=== PATIENT | female | born 1995 | race Caucasian/White ===

== ENCOUNTER 2016-09-02 18:43 | Emergency (ER) | payer OTHER | END 2016-09-02 20:39 | disposition home or self-care (01) | LOC: ER1 18:43 | DX: S91.311A Laceration without foreign body, right foot, initial encounter (principal); W26.8XXA Contact with other sharp object(s), not elsewhere classified, initial encounter; Y92.009 Unspecified place in unspecified non-institutional (private) residence as the place of occurrence of the external cause; Z23 Encounter for immunization | CPT/HCPCS: 12001; 90471; 90714; 99283 ==

== ENCOUNTER 2016-11-20 12:32 | Emergency (ER) | payer OTHER ==
[2016-11-20 14:04] LABS: BUN/CREATININE RATIO 20 (0-10)
[2016-11-20 14:12] LABS: HEMOGLOBIN 13.9 gm/dl (12.3-15.3); RED BLOOD COUNT 5.04 M/UL (4.00-5.10); WHITE BLOOD COUNT 7.6 K/UL (4.5-11.0)
== END 2016-11-20 15:41 | disposition home or self-care (01) ==
LOC: ER1 12:32
PROVIDERS: Physician Assistant Medical
DX: R10.84 Generalized abdominal pain (principal); R11.10 Vomiting, unspecified; E28.2 Polycystic ovarian syndrome; K58.9 Irritable bowel syndrome, unspecified; Z88.2 Allergy status to sulfonamides
CPT/HCPCS: 36415; 80053; 81001; 82150; 83690; 84703; 85025; 96374; 99284; J2405; J7050; Q9962

== ENCOUNTER 2021-10-14 21:20 | Emergency (ER) | payer BC ==
[~2021-10-14 21:20] MED LIST: EPIPEN 2-P0.3 MG/0.3 INJ; FLEXERIL 10 MG10 MG PO; IBUPROFEN800 MG PO
[2021-10-14 23:19] LABS: RED BLOOD COUNT 4.97 M/UL (4.00-5.10); WHITE BLOOD COUNT 13.6 K/UL (4.5-11.0)
== END 2021-10-15 01:22 | disposition home or self-care (01) ==
LOC: ER1 21:20
PROVIDERS: Physician Assistant
DX: S96.911A Strain of unspecified muscle and tendon at ankle and foot level, right foot, initial encounter (principal); R55 Syncope and collapse; F17.290 Nicotine dependence, other tobacco product, uncomplicated; Z88.2 Allergy status to sulfonamides; W01.10XA Fall on same level from slipping, tripping and stumbling with subsequent striking against unspecified object, initial encounter; Y92.219 Unspecified school as the place of occurrence of the external cause
CPT/HCPCS: 70450; 71045; 73610; 73620; 80053; 84703; 85025; 93005; 99284

== ENCOUNTER → 2021-10-23 | Outpatient (CLI) | payer BC ==
[2021-10-23 17:36] LABS: HEMOGLOBIN 14.3 gm/dl (12.3-15.3)
[2021-10-23 18:02] LABS: BUN/CREATININE RATIO 16 (0-10)
== END ==
LOC: LAB 17:04
PROVIDERS: Nurse Practitioner Family
DX: D72.829 Elevated white blood cell count, unspecified (principal); R94.6 Abnormal results of thyroid function studies; E87.6 Hypokalemia; M79.671 Pain in right foot; M25.571 Pain in right ankle and joints of right foot
CPT/HCPCS: 73610; 73630; 80048; 84439; 84443; 85025